=== PATIENT | female | born 1955 | race Caucasian/White ===

== ENCOUNTER 2018-02-04 23:42 | Emergency (ER) | END 2018-02-05 02:51 | disposition home or self-care (01) ==

== ENCOUNTER 2018-03-23 14:25 | Emergency (ER) | END 2018-03-23 15:22 | disposition home or self-care (01) ==

== ENCOUNTER 2018-08-18 22:56 | Emergency (ER) | payer BC ==
[~2018-08-18] VITALS: Ht 157.5 cm; Wt 83.0 kg
[~2018-08-18 22:56] MED LIST: CIPR500T4 PO; DOCU-144 PO; LORA-441 PO; NITR-58 PO; PHEN-537 PO
--- NOTE | 2018-08-18 23:39 | ERD ---
ER Documentation Chief Complaint Chief Complaint twisted knee at work HPI This is a 63-year-old female who is presenting with left knee pain that began while at work this evening at 7 PM. 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 She did not fall. Nothing hit her knee. She is ambulatory, but she endorses anterior tenderness. She attempted to wrap her knee with an Trell bandage, but it did not improve the pain, so she wanted to come to the emergency department to be evaluated further. She does not have any weakness or numbness or tingling distal to the injury. There is no swelling or deformity. ROS All systems reviewed and are negative except as per history of present illness. Medications Home Meds Active Scripts Ibuprofen* (Motrin*) 600 Mg Tab, 600 MG PO Q6H PRN for PAIN AND/OR INFLAMMATION, #30 TAB Prov:MACHO DUFF MD 08/18/18 Phenazopyridine Hcl* (Pyridium*) 100 Mg Tab, 100 MG PO TID for dysuria for 2 Days, #6 TAB Prov:MELIDA FRIED DO 03/23/18 Nitrofurantoin Monohyd Macrocr* (Macrobid*) 100 Mg Capsr, 100 MG PO BID for 5 Days, #10 CAP Prov:MELIDA FRIED DO 03/23/18 Docusate Sodium* (Colace*) 100 Mg Capsule, 100 MG PO TID for 5 Days, #15 CAP Prov:JANINE KIM MD 02/05/18 Lorazepam* (Ativan*) 0.5 Mg Tablet, 0.5 MG PO Q8H PRN for ANXIETY, #10 TAB Prov:ERICKA ALEJO 03/18/16 Ciprofloxacin Hcl* (Ciprofloxacin Hcl*) 500 Mg Tablet, 500 MG PO BID for 7 Days, TAB Prov:ARNAUD HART NP 07/15/15 Allergies Allergies: Coded Allergies: No Known Allergy (Unverified , 07/15/15) PMhx/Soc History of Surgery: No Anesthesia Reaction: No Hx Neurological Disorder: No Hx Respiratory Disorders: No Hx Cardiac Disorders: No Hx Psychiatric Problems: No Hx Miscellaneous Medical Probl: Yes (DM, EPILEPSY, THYROID) Hx Alcohol Use: No Hx Substance Use: No Hx Tobacco Use: Yes FmHx Family History: diabetes Physical Exam Physical Exam VS: Reviewed Const: No acute distress Head: Atraumatic Eyes: Normal Conjunctiva ENT: Normal External Ears, Nose and Mouth. Neck: Full range of motion. No meningismus. Resp: Clear to auscultation bilaterally Cardio: Regular rate and rhythm, no murmurs Abd: Soft, non tender, non distended. Normal bowel sounds Skin: No petechiae or rashes Back: No midline or flank tenderness Ext: No cyanosis, or edema. Anterior medial tenderness to the left knee. Full active and passive ROM to the left knee. Left patella is in appropriate position, it is not ballotable, no obvious joint effusion. Negative anterior drawer test. Neur: Awake and alert Psych: Normal Mood and Affect Results 24 hrs Current Medications Medications Dose Sig/Anyi Start Time Status Last (Trade) Ordered Route PRN Stop Time Admin Dose Reason Admin Ibuprofen 600 mg ONCE ONCE 08/19/18 (Motrin) PO 00:00 08/19/18 00:01 Procedures/MDM MDM The patient's presentation warrants further investigation. Previous medical records, if available, were reviewed. The patient's presenting with left knee pain after twisting incorrectly. I do suspect a soft tissue injury. I have low suspicion for fracture or dislocation. The patient is ambulatory without issue. TREATMENT/DISPOSITION The patient was treated with ibuprofen. She was also provided an Trell wrap for support. DISCHARGE Upon reevaluation of the patient, symptoms have improved. No emergent diagnoses were identified. At this time, I feel that the patient stable for discharge. The patient was instructed to follow-up with a primary care physician in 1-3 days. The patient will be given strict precautions with which to return to the emergency department. Prescriptions: Ibuprofen The patient's blood pressure was elevated at greater than 120/80 while in the emergency department. The patient was otherwise stable with no evidence of hypertensive urgency or emergency. The patient does not require admission for blood pressure control. I have discussed with the patient the risks of hypertension. I have instructed the patient to return to the ER for any new or worsening symptoms including chest pain, shortness of breath, headache, blurred vision, confusion, nausea, vomiting or LOC. I have advised the patient to follow up with the primary care physician for outpatient monitoring and treatment for hypertension in 1-3 days. Disclaimer: Inadvertent spelling and grammatical errors are likely due to EHR/dictation software use and do not reflect on the overall quality of patient care. Note that the electronic time recorded on this note does not necessarily reflect the actual time of the patient encounter. Departure Diagnosis: Primary Impression: Left anterior knee pain Condition: Stable Patient Instructions: Knee Sprain Additional Instructions: Thank you for for coming to [facility] [place] [facility] for your care today. Please ask your nurse or provider if you have questions about your care today and do not leave until all your questions have been answered. Please use any medications given as directed and follow-up with your doctor (or the doctor you were referred to) in the next 1-3 days. If you do not have a primary care doctor you may follow up at the [facility] or [facility] (listed below). You may also use motrin and tylenol as needed for fever and/or pain unless instructed otherwise by your provider or nurse. Indications for more urgent follow-up have been discussed, but you may return to the Emergency Department at ANY time for any worrisome or worsening symptoms. If you have abdominal pain, please know that no test or exam you received is perfect and you should follow up within 8 hours for continued pain. If you had any imaging studies today, such as an X-Ray or CT Scan, these studies will be reviewed later by a radiologist. You will be called if there are important findings that were not identified today, so make sure the contact information you provided at registration is correct. If you received any narcotic pain control medicine today, such as Vicodin, Morphine or Dilaudid, your coordination and judgment may be affected for a number of hours. Please do not drive or operate heavy machinery, and you may want someone to assist you at home. If you were given a prescription for narcotic medication, be aware that it is very addictive- use sparingly and only if necessary. PLEASE SEEK FURTHER EVALUATION AND MANAGEMENT AT YOUR DOCTORS OFFICE WITHIN THE NEXT 1-3 DAYS. IT IS YOUR RESPONSIBILITY TO MAKE AN APPOINTMENT FOR FOLOW-UP CARE. IF YOU HAVE A PRIMARY DOCTOR, PLEASE CALL THEIR OFFICE TO SCHEDULE AN APPOINTMENT FOR FOLLOW UP. IF YOU DO NOT HAVE A PRIMARY DOCTOR YOU CAN CALL OUR PHYSICIAN REFERRAL HOTLINE AT IF YOU CAN NOT AFFORD TO SEE A PHYSICIAN YOU CAN CHOSE FROM THE FOLLOWING OUR COMM[facility]ITY [facility]: [facility] [address] [facility] [address] [facility]. [facility] [address] [facility] [address] [facility] [address] [facility]. [facility]. [address] MACHO GARCIA MD Aug 18, 2018 23:38
[2018-08-18] MEDS ORDERED: IBUP-1542 PO (23:40)
[2018-08-19] VITALS: Ht 157.5 cm; Wt 83.0 kg
[2018-08-19] MEDS ORDERED: IBUPROFEN 600 MG TAB PO ONE
[2018-08-19] MEDS ORDERED: GLIP5TAB13 PO (02:13)
[2018-08-19] MEDS ORDERED: LEVO75TA5 PO (02:13)
[2018-08-19] MEDS ORDERED: ATOR20TA65 PO (02:13)
[2018-08-19] MEDS ORDERED: LANT3I SC (02:13)
== END 2018-08-19 00:30 | disposition home or self-care (01) ==
LOC: E/R 22:56
DX: M25.562 Pain in left knee (principal); E11.9 Type 2 diabetes mellitus without complications
CPT/HCPCS: 99282